=== PATIENT | female | born 1960 | race Caucasian/White ===

== ENCOUNTER → 2025-03-10 00:24 | Outpatient (CLI) | payer OTHER, SELFPAY ==
--- NOTE | 2025-03-10 06:45 | DI.MRI_ITS ---
Exam(s) MR LOWER JOINT RT WO EXAM: MR LOWER JOINT RT WO CLINICAL HISTORY: PAIN,oa rt patellofemoral joint,m17.11 TECHNIQUE: Multiplanar multisequence MRI of the knee was performed. COMPARISON: CR XR KNEE COMPLETE MIN 4V RT from 11/05/2024 FINDINGS: EFFUSION: There is a significant size knee joint effusion with some synovial thickening evident.. Tiny less than 1 cm size Holder cyst noted in the medial popliteal fossa. There is also significant subcutaneous fluid anterior to the patella and patellar ligament consistent with prepatellar bursitis and subcutaneous edema at this level. MARROW:No evidence of fracture. There are no significant osseous lesions. PATELLOFEMORAL COMPARTMENT: There is an enthesophyte at the quadriceps insertion on the anterosuperior aspect of the patella. The quadriceps tendon is intact. The patellar ligament is intact. There is a full-thickness cartilage loss over the medial facet of the patella with a small focus of subarticular bone edema in the posterior medial patella. There is moderate cartilage loss over the lateral patellar facet. There is also significant cartilage loss on the trochlear side of the medial patellofemoral compartment. There are few small cartilage fragments in the fluid at this level.There is no intraosseous signal to suggest recent patellar dislocation. There are no patellar retinacular tears. CRUCIATE LIGAMENTS: The anterior cruciate ligament is intact.The posterior cruciate ligament is intact. MEDIAL COMPARTMENT/MEDIAL MENISCUS: There is a radial tear in the posterior horn of the medial meniscus located 7 mm from the meniscal root attachment site and there is an element of outward extrusion of the medial meniscus. 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 No obvious tear of the anterior horn There is significant full-thickness articular cartilage loss over the main weight-bearing surface of the medial femoral condyle and there is some subarticular edemabut no formed osteochondral defect. Small marginal osteophyte is seen off the inner aspect of the medial femoral condyle. There is also mild intraosseous signal seen in the medial tibial plateau but this is predominately subjacent to the anterior horn of the medial meniscus. MEDIAL COLLATERAL LIGAMENT: There is sprain signal evident in the superior aspect of the MCL but no high-grade tear of this structure. LATERAL COMPARTMENT/LATERAL MENISCUS: Increased signal in the region of the root attachment of the posterior horn of the lateral meniscus which is probably a small tear at this level. Remainder of the posterior horn appears unremarkable and there is no evidence of obvious tear in the anterior horn of the lateral meniscus. There is significant cartilage thinning over the inner aspect of the main weight-bearing surface of the lateral femoral condyle with very mild subarticular edema in the lateral condyle at this level. Amount of degenerative change in the lateral compartment is significantly less than the medial compartment. ILIOTIBIAL BAND: Intact LATERAL COLLATERAL LIGAMENT COMPLEX: The fibular collateral ligament is intact. The biceps femoris tendon is intact.Popliteus muscle and tendon are intact. IMPRESSION: 1. There is a radial tear in the posterior horn of the medial meniscus with mild bucket-handle configuration and there is also some tearing in the outer 3rd of the posterior horn. There is advanced full-thickness articular cartilage loss over the main weight-bearing surface of the medial femoral condyle as well as some subarticular edema in the medial condyle. 2. There is sprain signal seen in the superior aspect of the medial collateral ligament but no full-thickness tear of this structure. Lateral collateral ligament complex is intact. 3. Probable small tear at the root attachment site of the posterior horn of the lateral meniscus, significantly less obvious than the tearing evident the posterior horn of the medial meniscus. There is also significantly milder cartilage loss in the lateral compartment which is predominately over the inner aspect of the lateral femoral condyle. 4. There are no cruciate ligament tears 5. There are is full-thickness retropatellar cartilage loss over the medial patellar facet and significant opposing cartilage loss over the medial trochlear region. There is some cartilage loss also evident over the lateral patellar facet but less than is seen over the medial facet. There appears to be at least 1 floating cartilage fragment in the joint effusion in this region. 6. There is a prominent joint effusion and some synovial thickening. DATA REPOSITORY:
== END ==
PROVIDERS: PCP Internal Medicine; Visit Provider Student in an Organized Health Care Education/Training Program
DX: M17.11 Unilateral primary osteoarthritis, right knee (principal)
CPT/HCPCS: 73721